=== PATIENT | male | born 2000 | race Caucasian/White ===

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

== ENCOUNTER 2025-03-30 09:27 | Outpatient (CLI) | payer BC, SELFPAY ==
--- NOTE | 2025-03-29 | CYST_PTH ---
PATIENT: LESLY MELTON GENE LOC: [facility] U#:[id number] AGE/SX: 24/M ROOM: RE03/30/[address]: Dr. Juan Francisco Mendez MD : 2000 BED: DIS: 03/30/2025 SPEC #: [id number] RECD: 03/29/25 16:47 STATUS: DAMIEN REShwetha #: [id number] ROMULO: 03/29/25 00:[address]: Juan Francisco Mendez DEPT: SURGICAL PATHOLOGY RECD BY: Denton Naranjo ENTERED: 03/30/25 10:39 SP TYPE: Cyst OTHR DR: No Primary Care Phys Tissues: A - CYST B - CYST Procedures: Surgery Specimen Level III HEADER OPERATION: Excision and closure right shinto and right neck cyst PRE-OP DIAGNOSIS: Right shinto and neck cysts TISSUE SUBMITTED: A- Right shinto cyst, B- Right neck cyst MICROSCOPIC DIAGNOSIS A. Bahai, right, cyst, excision: Epidermal inclusion cyst.B. Neck, right, cyst, excision: Cystically dilated squamous lined space with surrounding inflammation suggestive of early epidermal inclusion cyst. MICROSCOPIC DESCRIPTION Slides are reviewed. GROSS DESCRIPTION Received in 2 formalin containers labeled with the patient's name and date of . Designated as: A. Right shinto cyst is a 0.7 x 0.4 x 0.4 cm intact, firm cyst surfaced by a 1.2 x 0.5 cm perez skin ellipse devoid of orientation. The cyst and resection margin. Sectioning reveals smooth white cyst contents. Entirely submitted in 1 cassette. B. Right neck cyst is a 1.1 x 0.5 cm perez skin ellipse, devoid of orientation and excised to a maximum depth of 0.6 cm. The resection margin is inked orange. Sectioning reveals perez, fibrotic cut surfaces. No definitive lesions are grossly appreciated. Entirely submitted in 1 cassette. [place] 03/30/2025 CPT:70098l5
--- OUTSIDE RECORDS SUMMARY | 2025-03-30 16:58 | XMS RPT_ITS | CCD ---
Author Organization [facility] Care Team Providers Care [employer] Financial Developer Name Role Phone No Family, Physician Unavailable Unavailable HERRERA GERARDO C Unavailable Unavailable HERRERA, GERARDO C Unavailable Unavailable HERRERA, GERARDO C Unavailable Unavailable HERRERA, GERRADO C Unavailable Unavailable HERRERA, GERARDO C Unavailable Unavailable HERRERA, GERARDO C Unavailable Unavailable HERRERA, GERARDO C Unavailable Unavailable HERRERA, GERARDO C Unavailable Unavailable HERRERA, GERARDO C Unavailable Unavailable HERRERA, GERARDO C Unavailable Unavailable KVNG ALMEIDA, JUDIT Ibarra Primary Care Physician [phone] Judit Lopez Referring Unavailable Judit Lopez Primary Care Unavailable Juan Francisco Mendez Attending Unavailable Dr. Judit Lopez MD Primary Care Provider [phone] Dr. Judit Lopez MD Referring Provider Dr. Juan Francisco Mendez MD Attending Provider Medications Current Medications Medication Drug Class(es) Dates Sig (Normalized) Sig (Original) cephalexin 500 mg oral capsule (1 source) Cephalosporin Antibacterial Start: 04-24-2022 End: 05-04-2022 cephalexin 500 mg oral capsule Dose : 500 mg = 1 cap(s), Oral, q12h, X 10 day(s), # 20 cap(s), 0 Refill(s), 05/04/22 15:29:00 EDT, Pharmacy: [facility]/pharmacy #[id number], Pharyngitis, 185.6, cm, 04/24/22 14:40:00 EDT, Height, 89.9 Start Date: 04/24/22 Stop Date: 05/04/22 Status: Ordered finasteride 1 mg oral tablet (1 source) 5-alpha Reductase Inhibitor Start: 02-09-2025 take 1 tablet by mouth once daily Finasteride 1 mg tablet Active 1 mg PO daily February 09, 2025 12:00am predniSONE 20 mg oral tablet (1 source) Start: 04-24-2022 End: 04-29-2022 prednisone 20mg tab (TAPER) Dose : 20 mg = 1 tab(s), Oral, qDay, X 5 day(s), # 5 tab(s), 0 Refill(s), 04/29/22 15:29:00 EDT, Pharmacy: [facility]/pharmacy #[id number], Pharyngitis, 185.6, cm, 04/24/22 14:40:00 EDT, Height Start Date: 04/24/22 Stop Date: 04/29/22 Status: Ordered Completed/Discontinued Medications Medication Drug Class(es) Dates Sig (Normalized) Sig (Original) doxycycline anhydrous 40 mg delayed release oral capsule (1 source) Tetracycline-cla ss Drug Start: 06-25-2017 End: 02-09-2025 take 1 capsule by mouth once daily Doxycycline Monohydrate 40 MG capsule,IR - delay rel,biphase Discontinued 40 mg PO DAILY June 25, 2017 12:00am February 09, 2025 4:09pm Problems Problem Classification Problem Date Documented Da te Episodic/Chronic Fracture of upper limb (3 sources) Other fracture of lower end of right ulna, initial encounter for closed fracture; Translations: [Unspecified fracture of the lower end of right radius, initial encounter for closed fracture] Onset: 06-10-2018 Episodic Other skin disorders (2 sources) Epidermoid cyst; Translations: [Epidermal cyst] 02-11-2025 Episodic Comment on above: Right adventist and ant erior neck Unclassified (1 source) Unspecified fracture of the lower end of right radius, initial encounter for closed fracture / S52.501A(ICD-10) Onset: 05-23-2018 Results Test Name Value Interpretation Reference Range Facil ity Plastic Surgery Visit Report on 02-09-2025 Plastic Surgery Visit Report [facility] [address], [address] [place], [place] [address] OFFICE VISIT Date of Service: 02/09/25 MR#: [id number] Acct: [id number] Name: LESLY MELTON Rep #: [id number] : 2000 Provider: Dr. Juan Francisco Mendez MD Age/Sex: 24/M [facility] [facility] Status: Signed Intake Vital Signs 3 02/09/25 16:10 Height 6 ft 1 in Weight: 208 lb BMI 27.4 BP 115/73 Blood Pressure Location Lt brachial Position Sitting Respiration 18 Pulse 67 Temp 99.0 F Temp Source Temporal Pulse Oximetry (%) 97 Oxygen Delivery Method room air Intake Visit Reasons: CYSTS Chief Complaint: right adventist, neck Accompanied by: Mother Is patient in pain?: No Allergies No Known Allergies Allergy (Verified 06/25/17 22:42) Medications 3 ???Medication ???Instructions ???Recorded ???Confirmed ???Type finasteride 1 mg tablet 1 mg PO QDAY 02/09/25 02/09/25 His olga Nurse's Note: pt refered to practice by Dr. Trejo, for eval of cyst on right adventist and neck area PFSH Medical History Bone fracture Asthma Family History Other Allergies Asthma Breast cancer Cancer Diabetes Lung cancer Social History Smoking Status: Never smoker substance use type: does not use HPI CYSTS Details: Lesly Melton is a 24 year old healthy male presenting to the office for eval of two cyst, one on neck and one on right adventist area. The cyst on the neck has previously drained. The cyst on the right adventist area does not have a history of draining. Both cysts have been there for couple of years and abdomen flow with regards to size. Patient and his mother agreed to an in office procedure to remove both of cyst at general surgery office. Pt denies using tobacco products, smoking and any family history of blood clots/disorders. Patient is a track and field coach and would like to have procedure performed while home( March 19-April 08). We will submit to insurance and call patient's mother to schedule in office procedure. ROS General General: Yes good health; No fatigue, fever(s) or weight loss HENMT HENMT: No rhinitis, sore throat/mouth sore, nasal congestion, contacts or glaucoma Endo Endocrine: No thyroid disease, polydipsia, heat intolerance, cold intolerance, hepatitis or excessive urine Skin Skin: No Bleeding, bruising, changing moles or suspicious lesion Musc Musculoskeletal: No joint pain, joint stiffness, muscle weakness, back pain, osteoarthritis or Muscle aches/ myalgia Neuro Neurological: No headache(s), No lightheadedness and No numbness Cardio Cardiovascular: No chest pain, pacemaker, fatigue or shortness of breat with exertion Psych Psychiatric: No depression, claustrophobia or anxiety Resp Respiratory: Yes asthma; No spitting up, shortness of breath, sleep apnea, emphysema, TB, Cough or Smoker Gastro Gastrointestinal: No diarrhea, constipation, blood in stool, nausea, vomiting or abdominal bloating Gumaro Hematologic: No anemia, No bleeding and No abnormal bleeding Genitourinary: No urinary frequency, blood in urine or incontinence Exam Details 1 x 1 cm cyst on the neck and right adventist area both consistent with epidermal inclusion cysts/ingrown hairs with subsequent scarring. They are superficial and mobile. They are not fixed to any underlying tissues. No cervical lymphadenopathy Coding Level of Care Code Off vis,new,level 3 Diagnoses Epidermal inclusion cyst L72.0 Assessment and Plan (No Qualifiers) Assessment and Plan (1) Epidermal inclusion cyst: Status: Acute Comment: Right adventist and anterior neck Plan: Discussed risks, benefits, and alternatives to excision of these cysts, including possible return of the cyst, failure to obtain the desired result, poor scarring, damage to nerves (specifically frontal branch of the facial nerve), wound healing complication, bleeding, infection. Patient would like to get the lesions excised in clinic. Patient has mother happy with the plan CPT codes for insurance prior authorization are as follows: [id number]. 02/11/25 1223 Date Juan Francisco Mendez MD Cosignghassan Signature: Date (if applicable) CC: [facility] No Panel Informationon 04-24 Culture Throat Normal throat marques present Sensitivity Testing: Not Indicated Comment: The most common etiologic agents in pharyngitis include Group A beta Strep, Adenovirus, EBV, and CMV. A negative bacterial culture may be supplemented with a virus culture if duration of present illness is less than 7 days. [facility] XR WRIST RIGHT (2 VIEWS)on 0 06-10-2018 XR WRIST RIGHT (2 VIEWS) EXAMINATION:SPOT FLUOROSCOPIC IMAGES06/10/2018 4:43 pmTECHNIQUE:Fluorosco py was provided by the radiology department for procedure.Radiologist was not present during examination.FLUOROSCO PY DOSE AND TYPE OR TIME AND EXPOSURES:312.8 seconds, 4 imagesCOMPARISON:None HISTORY:Distal radial fractureFINDINGS:Inte rnal fixation distal radial fracture with volar sideplate and multiplescrews. Alignment appears with satisfactory without immediate complication.Remote scaphoid fracture internal fixation is seen.IMPRESSION: Intraprocedural fluoroscopic spot images as above. See separate procedurereport for more information.Interpret ed by:ROBERT Vazquezigned by:Dayana Torres MD06/10/18inal result Normal [facility] ED Provider Noteon 8 HIM IP Note OR Career Based Intervention Coordinator Normal [facility] XR WRIST RIGHT (MIN 3 VIEWS) on 05-23-2018 XR WRIST RIGHT (MIN 3 VIEWS) PROCEDURE: XR WRIST RIGHT (MIN 3 VIEWS)CLINICAL INFORMATION: football injury, deformity, previous hx scaphoid surgery.COMPARISON: None available.TECHNIQUE: 4 views of the right wristFINDINGS:There is an acute, impacted and nondisplaced fracture of the right distal radius. The fracture fragments are in proper anatomic alignment however, there is dorsal bulging of fracture fragments along the distal radius. A healed fracture is noted within the scaphoid. The fracture line is not visible. There is a surgical screw within the scaphoid bone. The surgical hardware appears intact. The carpal bones are otherwise in proper anatomic alignment. No instability pattern is identified. Soft tissue swelling is present overlying the wrist.IMPRESSION: There is an acute, impacted and nondisplaced fracture of the distal radius. Bulging of bony fracture fragments is noted along the distal radius. Soft tissue swelling is also present overlying the fracture.This report has been created using voice recognition software. It may contain minor errors which are inherent in voice recognition technology.Final report electronically signed by Dr. Armond Greco on 05/23/2018 4:48 PMInterpreted by:Luis Greco, DOSigned by:Luis Greco, DO05/23/18Final result Normal [facility] Vital Signs Date Time Vital Sign Value Performing Clinician Kiel aparicio 03-29-2025 10:30-0400 Body height 185.[address] Judit Lopez MD Work Phone: [facility] 03-29-2025 10:30-0400 Body temperature 98.6 [degF] Dr. Judit Lopez MD Work Phone: [facility] 03-29-2025 10:30-0400 Diastolic blood pressure 78 mm[Hg] Dr. Judit Lopez MD Work Phone: [facility] 03-29-2025 10:30-0400 Heart rate 62 /min Dr. Judit Lopez MD Work Phone: [facility] 03-29-2025 10:30-0400 Respiratory rate 18 /min Dr. Judit Lopez MD Work Phone: [facility] 03-29-2025 10:30-0400 SaO2% (BldA) [Mass fraction] 98 % Dr. Judit Lopez MD Work Phone: [facility] 03-29-2025 10:30-0400 Systolic blood pressure 134 mm[Hg] Dr. Judit Lopez MD Work Phone: [facility] 02-09-2025 16:10-0400 Body mass index (BMI) [Ratio] 27.4 kg/m2 Dr. Judit Lopez MD Work Phone: [facility] 02-09-2025 16:10-0400 Body temperature 99 [degF] Dr. Judit Lopez MD Work Phone: [facility] 02-09-2025 16:10-0400 Body weight 94.[address] Judit Lopez MD Work Phone: [facility] 02-09-2025 16:10-0400 Diastolic blood pressure 73 mm[Hg] Dr. Judit Lopez MD Work Phone: [facility] 02-09-2025 16:10-0400 Heart rate 67 /min Dr. Judit Lopez MD Work Phone: [facility] 02-09-2025 16:10-0400 Respiratory rate 18 /min Dr. Judit Lopez MD Work Phone: [facility] 02-09-2025 16:10-0400 SaO2% (BldA) [Mass fraction] 97 % Dr. Judit Lopez MD Work Phone: [facility] 02-09-2025 16:10-0400 Systolic blood pressure 115 mm[Hg] Dr. Judit Lopez MD Work Phone: [facility] Encounters Encounter Date Encounter Type Care Provider Facility Start: 03-29-2025 End: 03-29-[address] Judit Lopez MD Work Phone: -[facility] Start: 03-29-2025 End: 03-29-[address] Juan Francisco Mendez MD -[facility] Work Phone: Start: 02-09-2025 End: 02-09-[address] Juan Francisco Mendez MD -[facility] Work Phone: Start: 02-09-2025 End: 02-09-2025 ambulatory Judit Lopez [place] Start: 04-24-2022 End: 04-28-2022 Outreach Lab BOBBI VIEIRA PANAMA HAT BLOCKER-SEAMLESS TUBE MILL OPERATOR [facility] Start: 07-20-2018 End: 07-21-2018 Patient encounter procedure GERARDO Mosley [facility] Start: 07-18-2018 End: 07-19-2018 Patient encounter procedure GERARDO Mosley [facility] Start: 07-13-2018 End: 07-14-2018 Patient encounter procedure GERARDO Mosley [facility] Start: 07-11-2018 End: 07-12-2018 Patient encounter procedure GERARDO Mosley [facility] Start: 07-06-2018 End: 07-07-2018 Patient encounter procedure GERARDO Mosley [facility] Start: 07-04-2018 End: 07-05-2018 Patient encounter procedure GERARDO Mosley [facility] Start: 06-30-2018 End: 07-01-2018 Patient encounter procedure GERARDO Mosley [facility] Start: 06-29-2018 End: 06-30-2018 Patient encounter procedure GERARDO Mosley [facility] Start: 06-10-2018 End: 06-10-2018 Patient encounter procedure [facility] Start: 05-23-2018 End: 05-23-2018 Emergency department patient visit Physician No Family [facility] Procedures Date Procedure Procedure Detail Performing Clinician Start: 06-10-2018 Radex wrist 2 views ALBA FORD HERRERA Start: 06-10-2018 DISCHARGE PATIENT KERA Pratt HERRERA Start: 06-10-2018 ASSESS GERARDO FIELD Start: 06-10-2018 BEDREST GERARDO FIELD Start: 06-10-2018 Continuous pulse oximetry GERARDO HERRERA Start: 06-10-2018 INITIATE OXYGEN THER APY PROTOCOL GERARDO HERRERA Start: 06-10-2018 NEURO/VASCULAR CHECKS S TING HERRERA Start: 06-10-2018 NOTIFY PHYSICIAN (SPECIFY) GERARDO HERRERA Start: 06-10-2018 NURSING COMMUNICATION S TING HERRERA Start: 06-10-2018 VITAL SIGNS GERARDO FIELD Start: 06-10-[address] EVEN JAVIER Start: 05-23-2018 Slings Physician No Family Start: 05-23-2018 SUGAR TONG OCL SPLINT ARM Physician No Family Start: 05-23-2018 Radex wrist complete minimum 3 views Physician No Family Start: 05-23-2018 APPLY ICE TO AFFECTED AREA Physician No Family Immunizations Immunization Date Immunization Notes Care Provider Fa axelty 01-06-2021 SARS-CoV-2 (COVID-19 ) mRNA-5825 vaccine BOBBI WILEYER PANAMA HAT BLOCKER-SEAMLESS TUBE MILL OPERATOR [facility] Vaccine [facility] Comment on above: Result Comment: 2021: TPVALL 12-05-2020 SARS-CoV-2 (COVID-19 ) mRNA-1273 vaccine BOBBI WILEYER PANAMA HAT BLOCKER-SEAMLESS TUBE MILL OPERATOR [facility] Comment on above: Result Comment: 2021: TPV99 04-16-2017 hepatitis A vaccine, pediatric dosage, unspecified formulation BOBBI DARIEL PANAMA HAT BLOCKER-SEAMLESS TUBE MILL OPERATOR [facility] 04-16-2017 meningococcal polysaccharide (groups A, C, Y and W-135) diphtheria toxoid conjugate vaccine (MCV4P) BOBBI VIEIRA PANAMA HAT BLOCKER-SEAMLESS TUBE MILL OPERATOR [facility] 04-08-2013 varicella virus vaccine MADALYN ARGUETA DARIEL PANAMA HAT BLOCKER-SEAMLESS TUBE MILL OPERATOR [facility] 08-12-2012 Human Papillomavirus Quadval BOBBI DARIEL PANAMA HAT BLOCKER-SEAMLESS TUBE MILL OPERATOR [facility] 03-16-2012 Human Papillomavirus Quadval BOBBI DARIEL PANAMA HAT BLOCKER-SEAMLESS TUBE MILL OPERATOR [facility] 02-04-2012 Human Papillomavirus Quadval BOBBI DARIEL PANAMA HAT BLOCKER-SEAMLESS TUBE MILL OPERATOR [facility] 02-04-2012 meningococcal polysaccharide (groups A, C, Y and W-135) diphtheria toxoid conjugate vaccine (MCV4P) BOBBI VIEIRA PANAMA HAT BLOCKER-SEAMLESS TUBE MILL OPERATOR [facility] 02-04-2012 tetanus toxoid, redu sandee diphtheria toxoid, and acellular pertussis vaccine, adsorbed BOBBI VIEIRA PANAMA HAT BLOCKER-SEAMLESS TUBE MILL OPERATOR [facility] 10-01-2004 measles/mumps/rubell a virus vaccine BOBBI VIEIRA PANAMA HAT BLOCKER-SEAMLESS TUBE MILL OPERATOR [facility] 10-01-2004 poliovirus vaccine, inactivated BOBBI VIEIRA PANAMA HAT BLOCKER-SEAMLESS TUBE MILL OPERATOR [facility] 11-10-2000 haemophilus influenz ae type b vaccine, PRP-OMP conjugate BOBBI VIEIRA PANAMA HAT BLOCKER-SEAMLESS TUBE MILL OPERATOR [facility] 08-18-2000 measles/mumps/rubell a virus vaccine BOBBI VIEIRA PANAMA HAT BLOCKER-SEAMLESS TUBE MILL OPERATOR [facility] 08-18-2000 varicella virus vaccine MADALYN VIEIRA PANAMA HAT BLOCKER-SEAMLESS TUBE MILL OPERATOR [facility] 06-09-2000 hepatitis B pediatri c vaccine BOBBI VIEIRA PANAMA HAT BLOCKER-SEAMLESS TUBE MILL OPERATOR [facility] 02-04-2000 poliovirus vaccine, inactivated BOBBI VIEIRA PANAMA HAT BLOCKER-SEAMLESS TUBE MILL OPERATOR [facility] 1999 haemophilus influenz ae type b conjugate and Hepatitis B vaccine BOBBIARGENIS VIEIRA PANAMA HAT BLOCKER-SEAMLESS TUBE MILL OPERATOR [facility] 1999 poliovirus vaccine, inactivated BOBBI VIEIRA PANAMA HAT BLOCKER-SEAMLESS TUBE MILL OPERATOR [facility] 1999 hepatitis B pediatri c vaccine BOBBI VIEIRA PANAMA HAT BLOCKER-SEAMLESS TUBE MILL OPERATOR [facility] 1999 poliovirus vaccine, inactivated BOBBIARGENIS VIEIRA PANAMA HAT BLOCKER-SEAMLESS TUBE MILL OPERATOR [facility] Payers Date Payer Category Payer Self-pay 2025 Unknown [id number] 2016 Unknown [id number] 2016 Unknown [id number] 1999 Unknown [id number] 2.16.8 [id number] 1999 Unknown [id number] 2.16.8 [id number] 1999 Unknown [id number] 2.16.8 [id number] 1999 Unknown [id number] 2.16.8 [id number] 1999 Unknown [id number] 2.16.8 [id number] 1999 Unknown [id number] 2.16.8 [id number] 1999 Unknown [id number] 2.16.8 [id number] 1999 Unknown [id number] 2.16.8 [id number] 1999 Unknown [id number] 2.16.8 [id number] Unknown [id number] 2.16.8 [id number] Unknown [id number] Social History Date Type Detail Facility Start: 04-24-2022 End: 02-09-2025 Tobacco smoking status Never smoked tobacco (finding) [facility] Start: 2000 Sex Assigned At Male A [facility] Chief complaint+Reason for visit Narrative 02-09-2025 Note Date & Type Note Facility 02-09-2025 Chief complaint+R fariha for visit Narrative CYSTS February 09, 2025 3:30p m in office procedure March 29, 2025 10:0 1am Reason for Visit Admit Date Epidermal inclusion cyst February 09, 2025 3:30pm [facility] Work Phone: Evaluation note 02-09-2025 Note Date & Type Note Facility 02-09-2025 Evaluation note Diagnosis Onset Date Resolution Epidermal inclusion cyst acute February 09, 2025 3 :30pm [facility] Work Phone: Clinical Note 04-26-2022 Note Date & Type Note Facility 04-26-2022 Note . MICRO - Microbiology PROCEDURE: Throat Culture [*1] SOURCE: Throat BODY SITE: COLLECTED DATE/TIME: 04/24/2022 15:54 EDT RECEIVED DATE/TIME: 04/24/2022 20:04 EDT START DATE/TIME: 04/24/2022 20:04 EDT FREE TEXT SOURCE: AMENDED REPORTS Amended Report [] Verified Date/Time/Personnel: 04/26/2022 07:31 EDT Normal throat marques present Sensitivity Testing: Not Indicated Comment: The most common etiologic agents in pharyngitis include Group A beta Strep, Adenovirus, EBV, and CMV. A negative bacterial culture may be supplemented with a virus culture if duration of present illness is less than 7 days. FINAL REPORTS Final Report [] Verified Date/Time/Personnel: 04/26/2022 07:28 EDT Negative for upper respiratory pathogens at 24 hours. PRELIMINARY REPORTS Preliminary Report [] Verified Date/Time/Personnel: 04/25/2022 07:15 EDT Negative for upper respiratory pathogens at 24 hours. Performing Locations *1: This test was performed at: [facility], [address] [place] [address], [facility] , [facility] ([place]) Evaluation + Plan note Note Date & Type Note Facility Evaluation + Plan note No data available for this section [facility] Hospital Discharge instructions Note Date & Type Note Facility Hospital Discharge instructions No data available for this section [facility] Progress note Note Date & Type Note Facility Progress note No data available for this section [facility] Reason for referral (narrative) Note Date & Type Note Facility Reason for referral (narrative) No reason for referral information available [facility] Work Phone: Summary Purpose Family History Relationship Condition Age at Onset Recorded Date/T mai Not Specified Diabetes mellitus Unknown Allergy Unknown Malignant neoplasm of breast Unknown Malignant neoplasm of lung Unknown Malignant neoplasm Unknown Asthma Unknown Advance Directives No Advanced Directives Records FoundNo Advanced Directives Records FoundNo Advanced Directives Records FoundNo Advanced Directives Records Found Additional Source Comments (unrecognized sect ion and content) No Status Records FoundNo Status Records FoundNo Status Records FoundNo Status Records Found INFORMATION SOURCE (unrecogn ized section and content) DATE CREATED AUTHOR 05/28/2018 [facility] DATE CREATED AUTHOR AUTHOR'S ORGANIZ ATION 09/16/2018 Urmila Moy pitrafaela DATE CREATED AUTHOR AUTHOR'S ORGANIZ ATION 05/15/2022 [facility] ([place]) DATE CREATED AUTHOR AUTHOR'S ORGANIZ ATION 02/15/2025 [facility] Care Team (unrecognized sect ion and content) Care Team Personnel Name: JUDIT LOPEZ MD Position: P4 Physician - Primary Care Med Service: Active Provider Member Role: Primary Care Physician Address: Address: [address] [place] [id number] [place] Care Team Related Persons Name: ROSENDA MELTON Address: Home [address] [place] [id number] Address: [address] [phone] Name: LUKE MELTON Kristian Address: Home [address] [place] [address] Care Teams (unrecognized sec tion and content) Team Status: Active Member Role/Relationship Status Dates Dr. Judit Lopez MD Family Provider Active Dr. Judit Lopez MD Primary Care Provider Active Team Status: Inactive Member Role/Relationship Status Dates Dr. Judit Lopez MD Primary Care Provider Active Start: February 09, 2025 End: February 09, 2025 Dr. Judit Lopez MD Referring Provider Active Start: February 09, 2025 End: February 09, 2025 Dr. Juan Francisco Mendez MD Attending Provider Active Start: February 09, 2025 End: February 09, 2025 Team Status: Inactive Member Role/Relationship Status Dates Dr. Judit Lopez MD Primary Care Provider Active Start: March 29, 2025 End: March 29, 2025 Dr. Judit Lopez MD Referring Provider Active Start: March 29, 2025 End: March 29, 2025 Dr. Juan Francisco Mendez MD Attending Provider Active Start: March 29, 2025 End: March 29, 2025 Goals (unrecognized section and content) Goals may be documented in a n alternate section FOR RECORDS PERTAINING TO PATIENTS WHO ARE OR HAVE BEEN ENROLLED IN A CHEMICAL DEPENDENCY/SUBSTANCEABUSE PROGRAM, SOME INFORMATION MAY BE OMITTED. This clinical summary was aggregated from multiple sources. Caution should be exercised in using it in the provision of clinical care. This summary normalizes information from multiple sources, and as a consequence, information in this document may materially change the coding, format and clinical context of patient data. In addition, data may be omitted in some cases. CLINICAL DECISIONS SHOULD BE BASED ON THE PRIMARY CLINICAL RECORDS. [facility] [employer], [facility]. provides no warranty or guarantee of the accuracy or completeness of information in this document.
== END 2025-03-30 23:59 | disposition home or self-care (01) ==
LOC: LABSPEC 09:40
PROVIDERS: Referring Provider Surgery Plastic and Reconstructive Surgery; Visit Provider Surgery Plastic and Reconstructive Surgery
DX: L72.0 Epidermal cyst (principal)
CPT/HCPCS: 88304